=== PATIENT | female | born 1950 | race Caucasian/White ===

== ENCOUNTER 2016-04-28 14:12 | Day surgery (SDC) | payer OTHER ==
[~2016-04-28] VITALS: Ht 154.9 cm; Wt 55.3 kg
[2016-04-28 15:20] VITALS: Ht 154.9 cm; Wt 55.3 kg
[2016-04-28] MEDS ORDERED: METF500T PO (15:28)
[2016-04-28] MEDS ORDERED: DEXL30CA2 PO (15:29)
[2016-04-28 15:37] VITALS: BP 148/65; PULSE 93; RESP 16
[2016-04-28] MEDS ORDERED: PROPOFOL 40 ML ONE (15:54)
[2016-04-28 17:02] VITALS: BP 123/59; PULSE 85; RESP 14
--- NOTE | 2016-04-29 06:40 | GILP ---
DATE OF PROCEDURE: 04/28/2016 NAME OF PROCEDURES: Colonoscopy and biopsy. SURGEON: Dania Gandhi MD PREOPERATIVE DIAGNOSIS: Screening colonoscopy. POSTOPERATIVE DIAGNOSES: 1. Colonoscopy all the way to the cecum. 2. Rectal polyp and biopsy was taken for histopathology. 3. Internal hemorrhoids. 4. Rectal varices. INDICATION FOR THE PROCEDURE: Mr. Darlene Kulkarni is a 65-year-old female patient who was sched uled for screening colonoscopy. The procedure and possible complications were well explained to the patient. She understood and con sented to the procedure. DESCRIPTION OF PROCEDURE: Under the influence of anesthesia, the colonoscope was carefully introduc ed in the rectum, and under direct vision, it was advanced all the way to the cecum. FINDINGS: The patient had a polyp in the cecum, and biopsy was taken for histopathology. The patie nt was noted to have internal hemorrhoids and rectal varices. She tolerated the procedure very well, and there was no complication from the procedure. At the end of the procedure, she was awake with stable vital signs, and she was discharged home to the care of her family. IMPRESSION: 1. Colonoscopy all the way to the cecum. 2. Cecal polyp was biopsied. 3. Internal hemorrhoids. 4. Distal varices. PLAN: Await histopathology report. The timing for the next screening colonoscopy will be terminated after reviewing the biopsy report. Dictated By: DANIA VANESSA/GEOVANNA Conf#: [id number] DID#: [id number]
== END 2016-04-29 08:11 | disposition home or self-care (01) ==
LOC: GIL 14:12
PROVIDERS: ATTEND Internal Medicine Gastroenterology
DX: Z12.11 Encounter for screening for malignant neoplasm of colon (principal); D12.0 Benign neoplasm of cecum; K64.8 Other hemorrhoids; E11.9 Type 2 diabetes mellitus without complications
CPT/HCPCS: 45378; 82962; 88305; Z7610